=== PATIENT | male | born 1970 | race Caucasian/White ===

== ENCOUNTER 2021-01-13 12:44 | Outpatient (CLI) | payer SELFPAY ==
--- NOTE | 2021-01-13 13:16 | PC.NURSE ---
Pt came to get covid infusion, was wheeled in the room. O2 sats were showing 34%. Pt was given 10 L O2 and rapid response was called. O2 sats came up to 46% on 10 L 02. Rapid respose showed and nonrebreather mask was put on at 15L and cannula at 15L. Pt still only sat at 58%. Pt was wheeled up to ER by response staff. Patient alert and oriented. [place] LOPES
[2021-01-13 18:50] LABS: Glucose Point of Care 304 mg/dL (70-110)
== END 2021-01-13 12:45 | disposition home or self-care (01) ==
LOC: OPS 12:50
PROVIDERS: Visit Provider Nurse Practitioner
DX: U07.1 COVID-19 (principal); R50.9 Fever, unspecified
CPT/HCPCS: 36416; 82962

== ENCOUNTER 2021-01-13 13:13 | Emergency (ER) | payer SELFPAY ==
[2021-01-13] VITALS (12 sets, daily range): BP systolic 116–158; BP diastolic 75–92; PULSE 78–90; RESP 18–30; TEMP 36.6; O2SAT 84–95; BMI 29.5
--- NOTE | 2021-01-13 13:19 | XRR_ITS ---
PROCEDURE INFORMATION: Exam: XR Chest Exam date and time: 01/13/2021 1:19 PM Age: 50 years old Clinical indication: Condition or disease; Lung condition and disease; Respiratory failure; Status not specified; Additional info: Covid resp failure TECHNIQUE: Imaging protocol: XR of the chest. Views: 1 view. COMPARISON: No relevant prior studies available. FINDINGS: Lungs: There is multifocal bilateral lung opacification. Pleural spaces: There is a small right pleural effusion. No pneumothorax. Heart/Mediastinum: Unremarkable. No cardiomegaly. Bones/joints: Unremarkable. XR/XR chest 1V portable [id number] IMPRESSION: There is multifocal bilateral lung opacification consistent with infection and/or edema.
--- NOTE | 2021-01-13 13:21 | ECG_ITS ---
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 Measurements Intervals [place] Rate: 87 P: 45 MS: 150 QRS: -1 QRSD: 86 T: 19 QT: 356 QTc: 428 Interpretive Statements SINUS RHYTHM No previous ECG available for comparison Electronically Signed On 01-15-2021 9:03:13 CDT by Regina Shetty M.D. [email or web address]
--- NOTE | 2021-01-13 13:22 | W.ED.COVID ---
HPI - COVID General: Chief Complaint: COVID symptoms Stated Complaint: covid Time Seen by Provider: 01/13/21 13:18 History of Present Illness: MD complaint: known COVID positive Prior covid testing: yes, results known COVID 19 common symptoms: positive fever(s), chills, cough, non-productive cough, dyspnea, fatigue, body aches, headache(s) and nausea COVID 19 other sytmptoms: positive respiratory distress Onset (ago): day(s) (8) Pertinent comorbid conditions: diabetes and obesity Treatment prior to arrival: none and other (Patient presented as a rapid response from COVID19 infusion outpatient clinic. He ambulated in, was dyspneic, vitals checked and spo2 in 60's. He was brought to ER on 10L by [place] on portable tank. A non-rebreathing was added over this at 15LPM and sats improved to 88%. \) COVID Results: SARS-CoV-2 Antigen (Rapid) Positive (Negative) H 01/13/21 13:55 01/13/21 Review of Systems General: Reports: 10 or more systems reviewed and unremarkable except in HPI and below Const: Reports: fever(s), chills, body aches, change in appetite, fatigue and malaise ENMT: Reports: hoarseness Resp: Reports: dyspnea and non-productive cough; Denies: hemoptysis GI: Reports: nausea Musc: Reports: back pain; Denies: extremity swelling Skin/Breast: Denies: rash Neuro: Reports: headache(s) and difficulty walking (dyspnea) Endo: Reports: other (hyperglycemia) Ochoa/Lymph: Denies: easy bleeding PFS ED PFSH: Social History (Updated 01/13/21 @ 13:57 by Fco Milan MD) Smoking and tobacco status: never smoked Physical Exam Const: COMMON NORMALS: alert and well nourished EXAM LIMITATIONS: physical limitations (resp distress); no altered mental status GENERAL APPEARANCE: cooperative, well developed, in distress and ill appearing ORIENTATION/CONSCIOUSNESS: Yes awake; not confused HENMT: COMMON NORMALS: normocephalic and atraumatic HEAD & SCALP: normal to inspection, normocephalic and atraumatic FACE & SINUS: face symmetric MOUTH: lip normal; no muffled voice Eye: COMMON NORMALS: EOMs intact bilaterally and conjunctivae normal GENERAL EYE: appearance normal, both eyes and all related structures CONJUNCTIVA: Yes conjunctivae normal Neck/C-Spine: COMMON NORMALS: no JVD GENERAL: Yes normal visual inspection and Yes trachea midline Chest: COMMONS NORMALS: normal inspection of the chest CHEST: Yes Symmetrical chest wall rise, No Ecchymosis present, No wounds and Yes Vascular access present Resp: EFFORT & INSPECTION: Yes abnormal respiratory pattern, Yes tachypneic, Yes respiratory distress, Yes labored, No Actively coughing and Yes uses accessory muscles AUSCULTATION: rales and lung sounds not diminished Cardio: COMMON NORMALS: no JVD, regular rate and regular rhythm RATE: regular rate RHYTHM: regular rhythm PERIPHERAL PULSES: radial pulses present GI: COMMON NORMALS: Soft to palpation INSPECTION: Yes normal to inspection PALPATION: Yes Soft to palpation, No Tenderness to palpation present (GI) and No Guarding due to palpation present (GI) Back/Pelvis: COMMON NORMALS: thoraco-lumbar ROM normal Extremity: COMMON NORMALS: normal to inspection GENERAL: Yes normal exam except as noted Neuro: COMMON NORMALS: moves all extremities, no focal motor deficits and no sensory deficits noted SENSORIUM/ORIENTATION: Yes alert Psych: COMMON NORMALS: mental status grossly normal, Normal thought process present, cooperative, normal affect and speech normal SPEECH: Yes normal speech THOUGHT PROCESS: Normal thought process present Skin: COMMON NORMALS: no rashes or lesions noted, turgor normal, no jaundice, no petechiae and no mottling GENERAL SKIN EXAM: no rashes or lesions noted and turgor normal Course Vital Signs: Vital signs: Vital Signs Temperature 97.9 F 01/13/21 14:37 Pulse Rate 78 01/13/21 15:56 Respiratory Rate 18 01/13/21 15:56 Blood Pressure 128/76 01/13/21 15:56 Pulse Oximetry 92 01/13/21 16:00 MDM - COVID MDM Narrative: Medical decision making narrative: 50-year-old male on reported day 8 of coronavirus who has presented in respiratory distress from the outpatient infusion clinic. He did not receive the monoclonal antibody. He has not been on any specific therapies for his Covid. He started getting worse over the weekend and presented with an SPO2 in the 60s and low 70s. He is on 10 L by nasal cannula with 15 L nonrebreather over the top of that on arrival. His SPO2 was 84%. The patient is tachypneic with accessory muscles but is maintaining his work of breathing well. He has a hoarse voice but is not altered. He does have diabetes and hypothyroidism as well as mild obesity. An ABG was obtained and shows his pH is 7.346 with a PCO2 of 40.5. His PO2 is 51 with a 25 L of oxygen as described above. The patient will be started on high flow heated humidified nasal cannula and we will have to determine how many liters she needs. I did speak to the patient briefly about his CODE STATUS and although he does not want to be intubated at all if it came to that and it was a last resort, he would consent. The ABG shows a sodium of 127, potassium of 5.2, calcium of 1.03, glucose 314. The patient will be started on an insulin-based hyperglycemia correction protocol. Chest x-ray was obtained and shows bilateral multifocal pneumonia. EKG shows a sinus rhythm at a rate of 87 with a normal axis, normal intervals, and no concerning ST segment elevations or depressions. I spoke with Kurt at the transfer center at [facility] at 2 PM as there are no Covnh ICU beds available at this [facility] and multiple borders in the emergency department. He is going to review this patient's information with the hospitalist and return call. Dr Thompson accetped to [facility] direct admit. Patient was on 60L by HFNC. I transitioned him to BiPAP for transport--he's now on 21/02 at 100% FiO2 and spo2 93%. Patient given solumedrol 125mg on arrival. Remdesivir given. COVID + confirmed. Chemistries are pending. Ddimer minimally elevated--at this time feel PE is unlikely given xray/clinical hx/and low level of elevation: will hold off on CTA at this time. Patient will need decadron when arrives to [facility]. Calcium came back low, got 2g calcium gluconate by IV Mild hyponatremia/chloridemia. Creatine 1.4 The patient has not received any IVF in ED. Lab Data: Labs: Lab Results 01/13/21 01/13/21 01/13/21 Range/Units 13:21 13:55 13:55 WBC 3.4 L (4.0-10.0) 10^3/ uL RBC 4.85 (4.1-5.3) 10^6/u L Hgb 14.6 (11.7-16.6) g/dL Hct 43.2 (42.0-52.0) % MCV 89.1 (80-94) fl MCH 30.1 (28.0-34.0) pg MCHC 33.8 (30.0-36.0) g/dL RDW 11.9 L (12.1-15.1) % Plt Count 103 L (130-400) 10^3/c mm MPV 10.6 H (7.4-10.4) fL Neut % (Auto) 75.1 % Lymph % (Auto) 16.9 % Ray % (Auto) 7.4 % Eos % (Auto) 0.0 % Baso % (Auto) 0.0 % Neut # (Auto) 2.53 (1.8-7.7) 10^3/u L Lymph # (Auto) 0.6 L (0.8-4.8) 10^3/u L Ray # (Auto) 0.3 (0.2-0.9) 10^3/u L Eos # (Auto) 0.0 (0.0-0.8) 10^3/u L Baso # (Auto) 0.0 (0.0-0.1) 10^3/u L Nucleated RBC % (a uto) 0 % Nucleated RBCs # 0.0 /100WBC D-Dimer 0.89 H (0-0.59) ug/mIFE U Specimen Type Arterial Sample Site Brachial, left ABG pH 7.35 (7.35-7.45) ABG pCO2 40.5 (35-45) mmHg ABG pO2 51.0 L (80.0-100.0) mmH g ABG HCO3 22.2 (22-26) mmol/L ABG Base Excess -3.3 L (-2.0-2.0) mmol/ L Satnam Test N/a Hematocrit 47.0 (42-52) % Hgb O2 Saturation 81.9 L (95-100) % Carboxyhemoglobin 1.3 (0.4-20.1) %THgb Methemoglobin 0.5 (0.4-1.5) % Total Hemoglobin 15.3 (14-18) g/dL O2 Delivery Device Nrb FiO2 100.0 % Managing Partner ID Amh Sodium (136-145) mmol/L Potassium (3.5-5.1) mmol/L Chloride (98-107) mmol/L Carbon Dioxide (22-29) mmol/L Anion Gap (5-19) BUN (6-20) mg/dL Creatinine (0.7-1.2) mg/dL GFR Calculation (90-130) mL/min Glucose (65-115) mg/dL Calculated Osmolal ity (285-295) mOsm/k g Lactic Acid (0.5-2.2) mmol/L Calcium (8.5-10.5) mg/dL Magnesium (1.7-2.3) mg/dL Total Bilirubin (0.15-1.2) mg/dL AST (0-40) U/L ALT (0-41) U/L Alkaline Phosphata se (40-130) IU/L Troponin T Baselin e (0-15) ng/L C-Reactive Protein (0.0-4.9) mg/L NT-Pro-B Natriuret Pep (0-125) pg/mL Total Protein (6.6-8.7) g/dL Albumin (3.5-5.2) g/dL Globulin (1.3-4.6) g/dL SARS-CoV-2 Ag (Rap id) (Negative) 01/13/21 01/13/21 01/13/21 Range/Units 13:55 13:55 13:55 WBC (4.0-10.0) 10^3/ uL RBC (4.1-5.3) 10^6/u L Hgb (11.7-16.6) g/dL Hct (42.0-52.0) % MCV (80-94) fl MCH (28.0-34.0) pg MCHC (30.0-36.0) g/dL RDW (12.1-15.1) % Plt Count (130-400) 10^3/c mm MPV (7.4-10.4) fL Neut % (Auto) % Lymph % (Auto) % Ray % (Auto) % Eos % (Auto) % Baso % (Auto) % Neut # (Auto) (1.8-7.7) 10^3/u L Lymph # (Auto) (0.8-4.8) 10^3/u L Ray # (Auto) (0.2-0.9) 10^3/u L Eos # (Auto) (0.0-0.8) 10^3/u L Baso # (Auto) (0.0-0.1) 10^3/u L Nucleated RBC % (a uto) % Nucleated RBCs # /100WBC D-Dimer (0-0.59) ug/mIFE U Specimen Type Sample Site ABG pH (7.35-7.45) ABG pCO2 (35-45) mmHg ABG pO2 (80.0-100.0) mmH g ABG HCO3 (22-26) mmol/L ABG Base Excess (-2.0-2.0) mmol/ L Satnam Test Hematocrit (42-52) % Hgb O2 Saturation (95-100) % Carboxyhemoglobin (0.4-20.1) %THgb Methemoglobin (0.4-1.5) % Total Hemoglobin (14-18) g/dL O2 Delivery Device FiO2 % Managing Partner ID Sodium 129 L (136-145) mmol/L Potassium 5.3 H (3.5-5.1) mmol/L Chloride 90 L (98-107) mmol/L Carbon Dioxide 24 (22-29) mmol/L Anion Gap 20.3 H (5-19) BUN 31 H (6-20) mg/dL Creatinine 1.4 H (0.7-1.2) mg/dL GFR Calculation 53.4 L (90-130) mL/min Glucose 288 H (65-115) mg/dL Calculated Osmolal ity 285 (285-295) mOsm/k g Lactic Acid 2.3 H (0.5-2.2) mmol/L Calcium 7.6 L (8.5-10.5) mg/dL Magnesium 2.4 H (1.7-2.3) mg/dL Total Bilirubin 0.6 (0.15-1.2) mg/dL AST 123 H (0-40) U/L ALT 61 H (0-41) U/L Alkaline Phosphata se 52 (40-130) IU/L Troponin T Baselin e 19 H (0-15) ng/L C-Reactive Protein 129.9 H (0.0-4.9) mg/L NT-Pro-B Natriuret Pep 178 H (0-125) pg/mL Total Protein 6.3 L (6.6-8.7) g/dL Albumin 3.3 L (3.5-5.2) g/dL Globulin 3.0 (1.3-4.6) g/dL SARS-CoV-2 Ag (Rap id) (Negative) 01/13/21 Range/Units 13:55 WBC (4.0-10.0) 10^3/ uL RBC (4.1-5.3) 10^6/u L Hgb (11.7-16.6) g/dL Hct (42.0-52.0) % MCV (80-94) fl MCH (28.0-34.0) pg MCHC (30.0-36.0) g/dL RDW (12.1-15.1) % Plt Count (130-400) 10^3/c mm MPV (7.4-10.4) fL Neut % (Auto) % Lymph % (Auto) % Ray % (Auto) % Eos % (Auto) % Baso % (Auto) % Neut # (Auto) (1.8-7.7) 10^3/u L Lymph # (Auto) (0.8-4.8) 10^3/u L Ray # (Auto) (0.2-0.9) 10^3/u L Eos # (Auto) (0.0-0.8) 10^3/u L Baso # (Auto) (0.0-0.1) 10^3/u L Nucleated RBC % (a uto) % Nucleated RBCs # /100WBC D-Dimer (0-0.59) ug/mIFE U Specimen Type Sample Site ABG pH (7.35-7.45) ABG pCO2 (35-45) mmHg ABG pO2 (80.0-100.0) mmH g ABG HCO3 (22-26) mmol/L ABG Base Excess (-2.0-2.0) mmol/ L Satnam Test Hematocrit (42-52) % Hgb O2 Saturation (95-100) % Carboxyhemoglobin (0.4-20.1) %THgb Methemoglobin (0.4-1.5) % Total Hemoglobin (14-18) g/dL O2 Delivery Device FiO2 % Managing Partner ID Sodium (136-145) mmol/L Potassium (3.5-5.1) mmol/L Chloride (98-107) mmol/L Carbon Dioxide (22-29) mmol/L Anion Gap (5-19) BUN (6-20) mg/dL Creatinine (0.7-1.2) mg/dL GFR Calculation (90-130) mL/min Glucose (65-115) mg/dL Calculated Osmolal ity (285-295) mOsm/k g Lactic Acid (0.5-2.2) mmol/L Calcium (8.5-10.5) mg/dL Magnesium (1.7-2.3) mg/dL Total Bilirubin (0.15-1.2) mg/dL AST (0-40) U/L ALT (0-41) U/L Alkaline Phosphata se (40-130) IU/L Troponin T Baselin e (0-15) ng/L C-Reactive Protein (0.0-4.9) mg/L NT-Pro-B Natriuret Pep (0-125) pg/mL Total Protein (6.6-8.7) g/dL Albumin (3.5-5.2) g/dL Globulin (1.3-4.6) g/dL SARS-CoV-2 Ag (Rap id) Positive H (Negative) COVID Results: SARS-CoV-2 Antigen (Rapid) Positive (Negative) H 01/13/21 13:55 01/13/21 Discharge Plan Discharge Patient Disposition: Xfer Short-Term Hosp Clinical Impression: Suspected severe acute respiratory syndrome coronavirus 2 (SARS-CoV-2) infection, Diabetes mellitus, Hypothyroid, Obesity, D-dimer, elevated, Creatinine elevation, Hypocalcemia Condition: Critical Discharge Orders: Transfer Out of Facility (Order); Ordered 01/13/21 Ordered By: Fco Milan Coding Level of Care Code ED Iv Technician for Chg Fwd Exam Comprehensive
[2021-01-13 13:32] LABS: ABG PCO2 40.5 mmHg (35-45); ABG PH Result 7.35 (7.35-7.45); Base Excess ABG -3.3 mmol/L (-2.0-2.0); Blood Gas Operator Identificat AMH; Blood Gas Sample Site Brachial, left; Blood Gas Sample Type Arterial; Carboxyhemoglobin 1.3 %THgb (0.4-20.1); HCO3 ABG 22.2 mmol/L (22-26); HGB O2 Sat 81.9 % (95-100); Methemoglobin 0.5 % (0.4-1.5); Oxygen Device NRB; Total Hemoglobin 15.3 g/dL (14-18)
[2021-01-13 14:18] LABS: Hematocrit 43.2 % (42.0-52.0); Hemoglobin 14.6 g/dL (11.7-16.6); Lymphocytes # 0.6 10^3/uL (0.8-4.8); Lymphocytes % 16.9 %; Mean Corpuscular HGB Conc 33.8 g/dL (30.0-36.0); Mean Corpuscular Hemoglobin 30.1 pg (28.0-34.0); Mean Corpuscular Volume 89.1 fl (80-94); Mean Platelet Volume 10.6 fL (7.4-10.4); Monocytes # 0.3 10^3/uL (0.2-0.9); Monocytes % 7.4 %; Neutrophils # 2.53 10^3/uL (1.8-7.7); Neutrophils % 75.1 %; Nucleated Red Blood Cells % 0 %; Platelet Count 103 10^3/cmm (130-400); Red Blood Count 4.85 10^6/uL (4.1-5.3); Red Cell Distribution Width 11.9 % (12.1-15.1); White Blood Count 3.4 10^3/uL (4.0-10.0)
[2021-01-13] MEDS: remdesivir 200 MG in sodium chloride 0.9% (100 ml) 60 ML 100 MG IV (14:38)
[2021-01-13 14:44] LABS: D Dimer 0.89 ug/mIFEU (0-0.59); Lactic Sepsis W/Reflex 2.3 mmol/L (0.5-2.2)
[2021-01-13 14:45] LABS: Troponin(5th) Baseline 19 ng/L (0-15)
[2021-01-13 14:56] LABS: SARS Covid-2 Antigen Positive (Negative)
--- NOTE | 2021-01-13 15:04 | PC.PHAR ---
PT WAS ON A BIPAP AND WAS HAVING TROUBLE TALKING. HE STATES THAT HE USED ALL OF HIS INHALERS AND NEBULIZER TREATMENTS EVERY DAY THIS WEEK. PT STATES HE TAKES METFORMIN, GLYBURIDE AND LEVOTHYROXINE, BUT THE PHARMACY HE SAID HE USES HAS NOT FILLED ANY OF THESE FOR AT LEASE 3 YEARS.
--- NOTE | 2021-01-13 15:47 | PC.PHAR ---
I SPOKE WITH PT'S WHO STATES THAT THE METFORMIN, LEVOTHYROXINE AND GLYBURIDE WERE FILLED AT [facility]. ALL OF THEM HAD RUN OUT AND THEY ARE WAITING FOR ENGINEER SYSTEMS AT THE PHARMACY.
[2021-01-13 15:59] LABS: Alanine Aminotransferase 61 U/L (0-41); Albumin Level 3.3 g/dL (3.5-5.2); Alkaline Phosphatase 52 IU/L (40-130); Anion Gap 20.3 (5-19); Aspartate Amino Transferase 123 U/L (0-40); Blood Urea Nitrogen 31 mg/dL (6-20); C Reactive Protein 129.9 mg/L (0.0-4.9); Calcium 7.6 mg/dL (8.5-10.5); Carbon Dioxide 24 mmol/L (22-29); Chloride 90 mmol/L (98-107); Glomerular Filtration Rate 53.4 mL/min (90-130); Glucose 288 mg/dL (65-115); Magnesium 2.4 mg/dL (1.7-2.3); NT Pro B Type Natriuretic Pept 178 pg/mL (0-125); Osmolality Calculated 285 mOsm/kg (285-295); Potassium 5.3 mmol/L (3.5-5.1); Sodium 129 mmol/L (136-145); Total Bilirubin 0.6 mg/dL (0.15-1.2); Total Protein 6.3 g/dL (6.6-8.7)
[2021-01-13 16:01] LABS: Reflex Lactate Order REFLEX LACTIC ORDERD
--- NOTE | 2021-01-13 16:52 | PC.NURSE ---
Grover, shruthi called with an update on transfer by [facility].
[2021-01-13 16:56] LABS: Troponin 5 2HR 18.92 ng/L (0-15)
[2021-01-13 16:58] LABS: Troponin 5 2HR Delta -0.08 ABS# (0-10)
--- NOTE | 2021-01-13 17:36 | PC.NURSE ---
Pt was loaded on to helicopter when [facility] Vent started to alarm and was unable to provide Bi Pap to patient. Patient was brought back into the ER and RT placed patient back on [place] patient noted to have O 2 of 72%. [facility] is in route and Llanos was called with update.
--- NOTE | 2021-01-13 18:12 | PC.NURSE ---
report gave to [place] LOPES from [facility]. Patient placed on [facility] Monitor and stretcher and loaded in helicopter
== END 2021-01-13 18:14 ==
PROVIDERS: Emergency Provider Emergency Medicine
DX: U07.1 COVID-19 (principal); E11.9 Type 2 diabetes mellitus without complications; E03.9 Hypothyroidism, unspecified; E66.9 Obesity, unspecified; R79.9 Abnormal finding of blood chemistry, unspecified; E83.51 Hypocalcemia
CPT/HCPCS: 36600; 71045; 80053; 82805; 83605; 83735; 83880; 84484; 85025; 85378; 86140; 87426; 93005; 94660; 96365; 96375; 99291; J2930